=== PATIENT | male | born 1940 | race Caucasian/White ===

== ENCOUNTER 2018-08-15 14:07 | Inpatient (IN) | payer OTHER ==
[~2018-08-15] VITALS: Ht 170.2 cm; Wt 71.2 kg
[2018-08-15 15:33] LABS: PLATELET COUNT 269 x10^3mcL (130-400)
[2018-08-15 15:34] LABS: BASOPHIL % 0 % (0-2); RED CELL DISTRIBUTION WIDTH 14.7 % (11.5-14.5)
[2018-08-15 15:45] LABS: ALKALINE PHOSPHATASE 85 U/L (46-116); ALT/SGPT 21 U/L (16-63); AST/SGOT 23 U/L (15-37); BILIRUBIN TOTAL 0.3 mg/dL (0.20-1.00); CARBON DIOXIDE 27.1 mmol/L (21-32); CHLORIDE SERUM 103 mmol/L (98-107); CREATININE SERUM 3.9 mg/dL (0.7-1.3); GLUCOSE SERUM 125 mg/dL (74-106); POTASSIUM SERUM 3.5 mmol/L (3.5-5.1); SODIUM SERUM 142 mmol/L (136-145)
[2018-08-15 15:49] LABS: ALBUMIN 2.4 g/dL (3.4-5.0); TOTAL PROTEIN, SERUM 11.5 g/dL (6.4-8.2)
[2018-08-15 15:50] LABS: CK-MB 2.2 ng/mL (0-3.6)
[2018-08-15 15:53] LABS: CALCIUM 16.5 mg/dL (8.5-10.1)
[2018-08-15 16:04] LABS: UA SPECIFIC GRAVITY 1.025 (1.005-1.035); microscopic required? YES; urine erythrocyte 2+ (NEGATIVE)
[2018-08-15] MEDS ORDERED: TYLENOL325 M1 PO (16:46)
[2018-08-15] MEDS ORDERED: LIPITOR40 MG PO (16:46)
[2018-08-15] MEDS ORDERED: ACYCLOVIR400 MG PO (16:46)
[2018-08-15] MEDS ORDERED: D3-20002000 UNIT PO (16:47)
[2018-08-15] MEDS ORDERED: COLACE100 MG PO (16:48)
[2018-08-15] MEDS ORDERED: PRO40I IV (16:49)
[2018-08-15] MEDS ORDERED: PHARMASSURE FO0.4 MG PO (16:50)
[2018-08-15] MEDS ORDERED: LACTULOSE PO (16:51)
[2018-08-15] MEDS ORDERED: XOPENEX HF0.045 MG/1 INH (16:51)
[2018-08-15] MEDS ORDERED: ZOFRAN8 MG PO (16:52)
[2018-08-15] MEDS ORDERED: LEVOTHYROXINE0.1 M2 PO (16:52)
[2018-08-15] MEDS ORDERED: PHENYTEK300 MG PO (16:53)
[2018-08-15] MEDS ORDERED: SODIUM BICARBO650 MG PO (16:54)
[2018-08-15] MEDS ORDERED: FLO4 PO (16:54)
[2018-08-15 17:32] VITALS: BP 139/83
[2018-08-15 20:57] VITALS: BP 144/78
[2018-08-16 06:13] VITALS: BP 141/78
[2018-08-16 06:55] LABS: PLATELET COUNT 243 x10^3mcL (130-400)
[2018-08-16 07:09] LABS: CARBON DIOXIDE 27.3 mmol/L (21-32); CHLORIDE SERUM 107 mmol/L (98-107); CREATININE SERUM 3.8 mg/dL (0.7-1.3); GLUCOSE SERUM 104 mg/dL (74-106); SODIUM SERUM 145 mmol/L (136-145)
[2018-08-16 07:21] LABS: RED CELL DISTRIBUTION WIDTH 14.7 % (11.5-14.5)
[2018-08-16 07:55] LABS: CALCIUM 16.2 mg/dL (8.5-10.1)
[2018-08-16 09:57] LABS: BAND NEUTROPHIL 3 % (0-10); BASOPHIL 0 % (0-2); MONOCYTE 10 % (0-7); SEGMENTED NEUTROPHILS 84 % (37-75)
[2018-08-16 09:58] LABS: PLATELET MORPHOLOGY PLATELETS NORMAL; ovalocyte/elliptocyte 1+; rbc morphology (normal/abnorm) ABNORMAL (NORMAL); schistocyte (helmet cell) 1+
[2018-08-16 10:14] VITALS: BP 142/73
[2018-08-16 14:00] VITALS: BP 133/71
[2018-08-16 16:35] VITALS: BP 135/82
[2018-08-16 17:07] VITALS: BP 135/82
[2018-08-20 08:16] VITALS: Ht 170.2 cm; Wt 71.2 kg
== END 2018-08-16 17:55 | disposition short-term general hospital (02) | DRG 871 ==
LOC: ED 14:07 → EDBD 14:07 → DU 16:33
PROVIDERS: Emergency Medicine; Internal Medicine
DX: A41.9 Sepsis, unspecified organism (principal); G93.41 Metabolic encephalopathy; N17.9 Acute kidney failure, unspecified; I48.91 Unspecified atrial fibrillation; S01.80XA Unspecified open wound of other part of head, initial encounter; X58.XXXA Exposure to other specified factors, initial encounter; Y93.89 Activity, other specified; Y92.89 Other specified places as the place of occurrence of the external cause; Y99.8 Other external cause status; E83.52 Hypercalcemia; E03.9 Hypothyroidism, unspecified; I25.10 Atherosclerotic heart disease of native coronary artery without angina pectoris; Z79.899 Other long term (current) drug therapy; Z95.0 Presence of cardiac pacemaker; Z85.79 Personal history of other malignant neoplasms of lymphoid, hematopoietic and related tissues; N18.9 Chronic kidney disease, unspecified; J44.9 Chronic obstructive pulmonary disease, unspecified; J98.4 Other disorders of lung; E86.0 Dehydration; G40.909 Epilepsy, unspecified, not intractable, without status epilepticus
CPT/HCPCS: 83880; J2543; J3370; J7620; Q0092